=== PATIENT | female | born 1990 | race Caucasian/White ===

== ENCOUNTER → 2018-11-03 12:57 | Outpatient (CLI) | payer OTHER, SELFPAY ==
--- NOTE | 2018-11-03 13:05 | US_ITS ---
US transvaginal HISTORY: Pelvic pain ITS.REASON: ovarian cyst ORDERING PHYSICIAN: Dequan Villa MD PATIENT AGE: 28 years Comparison: None FINDINGS: The uterus is retroverted and measures 6 x 4 x 5 cm. There is an IUD in place. The endometrial stripe was not demonstrated secondary to the IUD. No uterine mass apparent. The left ovary is 3.8 x 1.7 cm and contains multiple small follicles. The right ovary is 3.7 x 3.7 cm also containing multiple small follicles. The volume of the right ovary is 14 cm and the volume of the left ovary is 12 cm. No cul-de-sac fluid evident. There is bilateral ovarian blood flow. IMPRESSION: Retroverted uterus with IUD in place. The ovaries have a polycystic appearance
== END ==
PROVIDERS: PCP Family Medicine; Visit Provider Nurse Practitioner Obstetrics & Gynecology
DX: N83.209 Unspecified ovarian cyst, unspecified side (principal)
CPT/HCPCS: 76830

== ENCOUNTER → 2019-07-31 13:58 | Outpatient (CLI) | payer OTHER, SELFPAY ==
[2019-07-31 14:32] LABS: Basophils % 0.2 % (0.1-2.0); Eosinophils # 0.1 K/mm3 (0.0-0.4); Eosinophils % 1.1 % (0.1-12.0); Hematocrit 41.5 % (37.0-47.0); Hemoglobin 13.9 g/dL (12.2-16.2); Lymphocytes # 3.1 K/mm3 (0.7-4.5); Lymphocytes % 28.2 % (10-50); Mean Corpuscular HGB Conc 33.4 g/dL (31.8-35.4); Mean Corpuscular Volume 89.9 fl (81-99); Mean Platelet Volume 8.2 fl (7.4-10.4); Monocytes # 0.6 K/mm3 (0.1-1.0); Monocytes % 5.4 % (1.7-9.3); Neutrophils # 7.2 K/mm3 (1.8-7.8); Neutrophils % 65.2 % (37.0-80.0); Platelet Count 275 K/mm3 (142-424); Red Blood Count 4.62 M/mm3 (4.20-5.40); Red Cell Distribution Width 13.3 % (11.5-17.5)
[2019-08-01 14:34] LABS: Free Thyroxine Index 2.9 ug/dL (5.93-13.13); T4 (Thyroxine) 7.7 ug/dl (5.53-11.0); Triiodothryronine (T3) Uptake 38 % (23.5-40.5)
[2019-08-01 14:48] LABS: Thyroid Stimulating Hormone 0.58 uIU/mL (0.465-4.68)
[2019-08-02 16:31] LABS: Vitamin B12 483 pg/mL (232-1245)
[2019-08-03 12:17] LABS: Vitamin D 25 Hydroxy 36.6 ng/mL (30.0-100.0)
== END ==
PROVIDERS: Visit Provider Nurse Practitioner Obstetrics & Gynecology
DX: R53.83 Other fatigue (principal)
CPT/HCPCS: 36415; 82607; 82652; 84436; 84443; 84479; 85025

== ENCOUNTER → 2019-12-27 15:58 | Outpatient (CLI) | payer OTHER, SELFPAY | PROVIDERS: Visit Provider Nurse Practitioner Obstetrics & Gynecology | DX: N39.0 Urinary tract infection, site not specified (principal) | CPT/HCPCS: 87086; 87088; 87186 ==

== ENCOUNTER → 2020-01-15 08:36 | Outpatient (CLI) | payer OTHER, SELFPAY ==
[2020-01-15 10:04] LABS: Coronavirus 19 IgG Antibody Negative (Negative); Coronavirus 19 IgM Antibody Negative (Negative)
== END ==
PROVIDERS: PCP Family Medicine; Visit Provider Internal Medicine Adolescent Medicine
DX: Z03.818 Encounter for observation for suspected exposure to other biological agents ruled out (principal)
CPT/HCPCS: 36415; 86328; U0003

== ENCOUNTER 2020-08-27 15:31 | Emergency (ER) | payer OTHER, SELFPAY ==
[2020-08-27 15:34] VITALS: RESP 16; TEMP 36.8; O2SAT 98; BMI 27.4
--- NOTE | 2020-08-27 15:51 | HMH.EDUTC ---
[facility] [place] Clinical Impression: Needle stick injury Disposition: Home, Self-Care Condition on Discharge: Good Instructions: How to Handle Body Fluid Exposure -- Healthcare Worker Additional Instructions: Keep area clean and dry and watch for signs of infection such as redness, red streaks and warmth Follow up as advised for repeat lab work due to body fluid exposure Return if needed Straight to ER if any life threatening symptoms Follow up with your Family Doctor if needed Referrals: Breezy Johnston MD [Primary Care Provider] - As needed Time of Disposition: 16:01 Medical Decision Making - Danny Inquiry Pt receiving controlled substance: No Danny was queried for this patient: No Vital Signs: 08/27/20 15:34 08/27/20 15:53 Temperature 98.3 F 98.3 F Temperature Source Oral Oral Pulse Rate 80 Respiratory Rate 16 16 Blood Pressure 0/0 L Blood Pressure Source Automatic Cuff Blood Pressure Position Sitting 02 Sat by Pulse Oximetry 98 Oxygen Delivery Method Room Air Room Air - Lab Data Lab Results 08/27/20 15:44: WBC 8.6, RBC 4.56, Hgb 13.8, Hct 42.3, MCV 92.7, MCH 30.2, MCHC 32.6, RDW 13.2, Plt Count 259, MPV 8.8, Neut % (Auto) 52.5, Lymph % (Auto) 39.7, Walton % (Auto) 5.6, Eos % (Auto) 1.9, Baso % (Auto) 0.3, Neut # (Auto) 4.5, Lymph # (Auto) 3.4, Walton # (Auto) 0.5, Eos # (Auto) 0.2, Baso # (Auto) 0.0 08/27/20 15:44: PT 10.4, INR 0.87 L, APTT 28.5 08/27/20 15:44: Total Bilirubin 0.6, Direct Bilirubin 0.1, Conjugated Bilirubin 0.0, Indirect Bilirubin 0.5, Unconjugated Bilirubin 0.4, AST 33, ALT 19, Alkaline Phosphatase 63, Total Protein 8.6 H, Albumin 5.4 H Result diagrams: 08/27/20 15:44 Orders (Tests/Meds): ORDERS Category Date Time Status HBsAg Screen Stat Lab 08/27/20 15:44 Received HIV Panel [id number] Stat Lab 03/30/21 15:44 Received Hepatitis B Surf Ab Quant Stat Lab 08/27/20 15:44 Received Hepatitis C Antibody Stat Lab 08/27/20 15:44 Received Medical Decision Narrative: Patient counseled to watch for signs of infection risks of communicable diseases associated with needle stick and repeat labs needed Patient advised to follow up with family doctor as advised [facility] [place] HPI - General Stated complaint: needle stick Time Seen by Provider: 08/27/20 15:51 Mode of Arrival: Ambulatory Source of Information: Patient Limitations: No Limitations Description of Symptoms (Recalled from Triage Doc. by RN): Pt was walking through the sim when she felt something sharp in her shoe, looked didnt see anything and stepped down again and felt something shapr again. Took her shoe off and noticed blood and there was a suture needle stuck HEENT Symptoms (Recalled from RN notes): No Resp Symptoms (Recalled from RN notes): No Skin Symptoms (Recalled from RN notes): Yes (stuck in foot with needle) MS Symptoms (Recalled from RN notes): No Functional Status (Recalled from RN notes): na - History of Present Illness Provider Complaint: Patient states that she was working and she was walking down the sim and she felt something sharp in the bottom of her foot between on the pad below her toes States that she took off her shoe and sock and didnt see anything so she but them back on and continued to walk down the sim when she felt something sharp poke her again in the bottom of the foot so she stopped took off her shoe and sock and seen blood on the bottome of her foot and noticed suture needle in the bottom of her shoe Unsure if the needle was used in case or not but she contacted [facility] infection control and was sent to the [facility] for lab work due to exposure - Related Data Previous Rx's Medication Instructions Recorded levothyroxine 25 mcg capsule 25 mcg PO DAILY #30 cap 08/02/19 ondansetron 4 mg disintegrating 4 mg PO Q6H #30 tab 06/28/20 tablet Allergies Allergy/AdvReac Type Severity Reaction Status Date / Time No Known Allergies Allergy Unverified 05/18/17 15:01 - Worker's Comp I
[2020-08-27 15:53] VITALS: BP 0/0; PULSE 80; RESP 16; TEMP 36.8; O2SAT 98
[2020-08-27 16:06] LABS: Basophils % 0.3 % (0.1-2.0); Eosinophils # 0.2 K/mm3 (0.0-0.4); Eosinophils % 1.9 % (0.1-12.0); Hematocrit 42.3 % (37.0-47.0); Hemoglobin 13.8 g/dL (12.2-16.2); Lymphocytes # 3.4 K/mm3 (0.7-4.5); Lymphocytes % 39.7 % (10-50); Mean Corpuscular HGB Conc 32.6 g/dL (31.8-35.4); Mean Corpuscular Hemoglobin 30.2 pg (27.0-31.2); Mean Corpuscular Volume 92.7 fl (81-99); Mean Platelet Volume 8.8 fl (7.4-10.4); Monocytes # 0.5 K/mm3 (0.1-1.0); Monocytes % 5.6 % (1.7-9.3); Neutrophils # 4.5 K/mm3 (1.8-7.8); Neutrophils % 52.5 % (37.0-80.0); Platelet Count 259 K/mm3 (142-424); Red Blood Count 4.56 M/mm3 (4.20-5.40); Red Cell Distribution Width 13.2 % (11.5-17.5); White Blood Count 8.6 K/mm3 (4.8-10.8)
[2020-08-27 16:10] LABS: Bilirubin,Unconjugated 0.4 mg/dL (0.0-1.1)
[2020-08-27 16:11] LABS: Alanine Aminotransferase 19 U/L (12-78); Albumin Level 5.4 g/dl (3.5-5.0); Alkaline Phosphatase 63 U/L (38-126); Aspartate Amino Transferase 33 U/L (14-36); Bilirubin,Direct 0.1 mg/dl (0.0-0.4); Bilirubin,Indirect 0.5 mg/dL (0.0-0.9); Bilirubin,Total 0.6 mg/dl (0.2-1.3); Total Protein,Serum 8.6 g/dl (6.3-8.2)
[2020-08-27 16:14] LABS: Activated Partial Thrombo Time 28.5 seconds (22.8-30.6); INR 0.87 (0.9-1.1); Prothrombin Time 10.4 seconds (10.1-12.5)
[2020-08-29 10:41] LABS: HIV Screen 4th Generation wRfx Non Reactive (Non Reactive)
[2020-08-30 03:34] LABS: Hepatitis B Surf Ab Quant 133.2 mIU/mL (Immunity>9.9); Hepatitis B Surface Antigen Negative (Negative); Hepatitis C Antibody <0.1 s/co ratio (0.0-0.9)
== END 2020-08-27 16:02 | disposition home or self-care (01) ==
PROVIDERS: Emergency Provider Nurse Practitioner; PCP Family Medicine
DX: S91.332A Puncture wound without foreign body, left foot, initial encounter (principal); W26.8XXA Contact with other sharp object(s), not elsewhere classified, initial encounter; W45.8XXA Other foreign body or object entering through skin, initial encounter; Y92.69 Other specified industrial and construction area as the place of occurrence of the external cause; Y99.0 Civilian activity done for income or pay
CPT/HCPCS: 80076; 85025; 85610; 85730; 86703; 86706; 87340; 87380; 99202; G0432; G0463

== ENCOUNTER → 2023-01-26 11:17 | Outpatient (CLI) | payer OTHER, SELFPAY ==
--- NOTE | 2023-01-26 11:20 | CT_ITS ---
FINAL REPORT TECHNIQUE: Axial CT images were obtained through the sinuses/facial bones. Coronal reformats were obtained. This study was performed with techniques to keep radiation doses as low as reasonably achievable (ALARA). Individualized dose reduction techniques using automated exposure control or adjustment of mA and/or kV according to the patient's size were employed. CLINICAL HISTORY: chronic sinusitis FINDINGS: The there is a lobular mucoperiosteal thickening in the left maxillary sinus consistent with chronic sinusitis. There are no air-fluid levels. The ostiomeatal units are patent. The nasal septum is not significantly deviated. No fractures are identified. IMPRESSION: Chronic left maxillary sinusitis. Reviewed, Interpreted and Dictated by Remy Jackson MD Transcribed by Bertin Bentley Authenticated and [facility]
== END ==
PROVIDERS: PCP Nurse Practitioner; Visit Provider Nurse Practitioner
DX: J32.0 Chronic maxillary sinusitis (principal)
CPT/HCPCS: 70486

== ENCOUNTER → 2023-03-23 13:22 | Outpatient (CLI) | payer OTHER, SELFPAY ==
[2023-03-23 09:07] LABS: Microscopic, Urine URINE MICROSCOPIC (MICROSCOPIC)
[2023-03-23 09:24] LABS: Appearance,Urine CLEAR (Clear); Bilirubin,Urine Negative (Negative); Blood, Urine Negative (Negative); Color,Urine YELLOW (Yellow); Glucose,Urine (UA) Negative (Negative); Ketones,Urine Negative (Negative); Leukocyte Esterase,Urine Negative (Negative); Nitrate,Urine Negative (Negative); Protein,Urine Negative (Negative); Specific Gravity, Urine 1.025 (1.005-1.030); Urobilinogen,Urine 0.2 EU/dl (0.2)
[2023-03-23 09:32] LABS: Basophils % 0.4 % (0.1-2.0); Eosinophils # 0.2 K/mm3 (0.0-0.4); Hematocrit 42.4 % (37.0-47.0); Hemoglobin 14.4 g/dL (12.2-16.2); Lymphocytes # 2.6 K/mm3 (0.7-4.5); Lymphocytes % 25.4 % (10-50); Mean Corpuscular HGB Conc 33.9 g/dL (31.8-35.4); Mean Corpuscular Hemoglobin 31.7 pg (27.0-31.2); Mean Corpuscular Volume 93.5 fl (81-99); Monocytes # 0.5 K/mm3 (0.1-1.0); Monocytes % 4.6 % (1.7-9.3); Neutrophils # 7.1 K/mm3 (1.8-7.8); Neutrophils % 67.7 % (37.0-80.0); Platelet Count 282 K/mm3 (142-424); Red Blood Count 4.54 M/mm3 (4.20-5.40); Red Cell Distribution Width 13.4 % (11.5-17.5); White Blood Count 10.4 K/mm3 (4.8-10.8)
[2023-03-23 10:01] LABS: Alanine Aminotransferase 34 U/L (12-78); Albumin Level 5.1 g/dl (3.5-5.0); Albumin/Globulin Ratio 1.7 (1.1-1.8); Alkaline Phosphatase 68 U/L (38-126); Anion Gap 18.2 mEq/L (5-15); Aspartate Amino Transferase 33 U/L (14-36); Bilirubin,Total 0.7 mg/dl (0.2-1.3); Blood Urea Nitrogen 12 mg/dl (7-17); Calcium 9.5 mg/dl (8.4-10.2); Carbon Dioxide 23 mmol/L (22.0-30.0); Chloride 103 mmol/L (98-107); Chol/HDL Ratio 5.5 (1-3.5); Cholesterol 208 mg/dl (140-200); Estimated Glomerular Filt Rate 96 ml/min (>60); GFR (African American) 116 ML/MIN (>60); Glucose 81 mg/dl (74-100); HDL Cholesterol 38 mg/dl (40-60); Potassium 4.2 mmoL/L (3.5-5.1); Sodium 140 mmol/L (136-145); Total Protein,Serum 8.1 g/dl (6.3-8.2); Triglycerides 169 mg/dl (30-150); VLDL Cholesterol 34 mg/dL (0-40)
[2023-03-23 10:12] LABS: Direct LDL Cholesterol 135.54 mg/dL (100-129)
[2023-03-23 10:21] LABS: 25-OH Vitamin D, Total 38.2 ng/mL (30-100)
[2023-03-23 10:51] LABS: Vitamin B12 508 pg/mL (239-931)
[2023-03-23 10:54] LABS: Free T4 (Free Thyroxine) 1.04 ng/dl (0.78-2.19)
[2023-03-23 10:57] LABS: Iron 155 ug/dL (37-170)
[2023-03-23 11:06] LABS: Total Iron Binding Capacity 397 ug/dL (265-497)
[2023-03-23 11:32] LABS: Ferritin 58.3 ng/ml (6.24-137)
[2023-03-23 11:58] LABS: Hemoglobin A1C 5.1 % (4.0-6.0)
[2023-03-24 23:57] LABS: Neisseria gonorrhoeae, NAA Negative (Negative)
== END ==
PROVIDERS: PCP Nurse Practitioner Family; Visit Provider Nurse Practitioner Family
DX: R53.83 Other fatigue (principal); R03.0 Elevated blood-pressure reading, without diagnosis of hypertension; E61.1 Iron deficiency; J34.2 Deviated nasal septum; E78.1 Pure hyperglyceridemia; J34.3 Hypertrophy of nasal turbinates; J34.89 Other specified disorders of nose and nasal sinuses; E66.9 Obesity, unspecified; Z68.31 Body mass index [BMI] 31.0-31.9, adult; Z13.1 Encounter for screening for diabetes mellitus; Z13.220 Encounter for screening for lipoid disorders; Z11.3 Encounter for screening for infections with a predominantly sexual mode of transmission
CPT/HCPCS: 80053; 80061; 81001; 82306; 82607; 82728; 83036; 83540; 83550; 84439; 84443; 85025; 87491; 87591

== ENCOUNTER → 2023-03-29 14:26 | Outpatient (CLI) | payer OTHER, SELFPAY ==
--- NOTE | 2023-03-29 14:29 | XR_ITS ---
FINAL REPORT CLINICAL HISTORY: Congestion, pre-op for sinus surgery. COMPARISON: None FINDINGS: A single portable view of the chest was obtained. The heart size and pulmonary vascularity are within normal limits. The mediastinum is within normal limits. No acute pulmonary abnormality is identified. The bony thorax is intact. IMPRESSION: No active cardiopulmonary disease. Reviewed, Interpreted and Dictated by Cristi Sanchez III, MD Transcribed by Celina Buckley Authenticated and [facility]
--- NOTE | 2023-03-29 14:44 | ECG_ITS ---
APPROVED REPORT Exam: Resting ECG HR:69 bpm ECG Measurements Heart Rate 69 AXES DE 169 P 50 QRSd 101 QRS 102 QT 388 T 51 QTc 407 Conclusion SINUS RHYTHM RIGHT AXIS DEVIATION [QRS AXIS > 100] LOW QRS VOLTAGE IN PRECORDIAL LEADS [QRS DEFLECTION < 1.0 mV IN CHEST LEADS] ABNORMAL ECG UNCONFIRMED REPORT Electronically signed by : Breezy Pablo MD 03/29/2023 20:17:03
== END ==
PROVIDERS: PCP Nurse Practitioner Family; Visit Provider Otolaryngology
DX: Z01.818 Encounter for other preprocedural examination (principal); J34.3 Hypertrophy of nasal turbinates; J34.2 Deviated nasal septum; J32.0 Chronic maxillary sinusitis
CPT/HCPCS: 71046; 93005

== ENCOUNTER → 2023-04-05 14:12 | Outpatient (CLI) | payer OTHER, SELFPAY ==
[2023-04-05 15:33] LABS: Urine Pregnancy, HCG Qual. Negative (Negative)
== END ==
PROVIDERS: PCP Nurse Practitioner Family; Visit Provider Otolaryngology
DX: Z01.812 Encounter for preprocedural laboratory examination (principal); J34.2 Deviated nasal septum; J34.3 Hypertrophy of nasal turbinates; J34.89 Other specified disorders of nose and nasal sinuses
CPT/HCPCS: 81025

== ENCOUNTER → 2023-04-06 14:27 | Outpatient (CLI) | payer OTHER, SELFPAY ==
--- NOTE | 2023-04-06 14:34 | CA_ITS ---
APPROVED REPORT EXAM: Comprehensive 2D, Doppler, and color-flow Echocardiogram X Ray Inspector: Lucía Cleveland, RCS, RVS Ht: 5 ft 3 in Wt: 180lbs BSA: 1.85 BP: 124/76 mmHg Indications: Hx- Right heart enlargement, Abn EKG- RAD, Preop clearance 2D Dimensions Aortic Root 2.18 cm F: 2.7 - 3.3 LA Volume 59.00 mL Left Atrium 2.97 cm F: 2.7 - 3.8 LA Volume Index 31.89 mL/m2 (M/F) 16-34 LVOT 1.72 cm (M/F) 1.5-2.5 M-Mode Dimensions RVDd 3.28 cm (0.9-2.6) LA Diam 3.26 cm (1.9-4.0) LVDd 3.15 cm (3.5-5.7) Ao Diam 2.69 cm (2.0-3.7) LVDs 1.91 cm (3.5-5.7) IVSd 0.90 cm (0.6-1.1) PWd 0.84 cm (0.6-1.1) EF (Teich) 71.30% EPSs 0.30 cm FS 39.40% EDV (Teich) 39.40 mL TAPSE 2.42 (<1.7) ESV (Teich) 11.30 mL LV Diastology E Decel Time 207.00 (160-240 msec) E/A Ratio 1.24 MED E' 7.80 (< 7 cm/sec) MED A' 16.60 cm/s E'/MED E' Ratio 10.04 (>14) LAT E' 12.10 (<10 cm/sec) LAT A' 13.70 cm/s E/LAT E' Ratio 6.47 (>14) Aortic Valve LVOT Max 140.00 (70-110 cm/s) LVOT VTI 27.17 cm AoV Peak Leroy. 180.00 (50-130 cm/s) AO Peak GR. 13.00 mmHg AO Mean GR. 6.40 (<5 mmHg) AO VTI 31.15 (18-25 cm) JEOVANY (VTI) 2.03 (2.5-4.5 cm2) Mitral Valve MV A Velocity 63.00 (40-130 cm/s) E/A Ratio 1.24 MV Decel. Time 207.00 (160-240 ms) Tricuspid Valve TR P. Velocity 194.00 cm/s RAP Estimate 10.00 mmHg RVSP 25.00 mmHg Left Ventricle The left ventricle is normal size. The left ventricular systolic function is normal. The left ventricular ejection fraction is within the normal range. There is normal left ventricular wall thickness. There is normal LV segmental wall motion. The left ventricular diastolic function is normal. LVEF is 60%. Right Ventricle The right ventricle is normal size. The right ventricular systolic function is normal. Atria The left atrium size is normal. The right atrium size is normal. There is no Doppler evidence of interatrial shunt. Aortic Valve The aortic valve opens well. There is no aortic valvular stenosis. No aortic regurgitation is present. Mitral Valve The mitral valve is normal in structure. No evidence of mitral valve stenosis. Trace mitral regurgitation. Tricuspid Valve The tricuspid valve leaflets are thin and pliable. Trace tricuspid regurgitation. There is insufficient TR jet to estimate RVSP. Pulmonic Valve The pulmonary valve is normal in structure. Trace pulmonic regurgitation. Great Vessels The aortic root is normal in size. The ascending aorta is normal in size. IVC is normal in size and collapses >50% with inspiration. Pericardium There is no pericardial effusion. Other Information Study Quality: Fair Conclusion Normal biventricular systolic function. No significant valvular stenosis or regurgitation. Electronically signed by : Breana Lei MD 04/06/2023 17:02:08
== END ==
PROVIDERS: PCP Nurse Practitioner Family; Visit Provider Physician Assistant
DX: R94.31 Abnormal electrocardiogram [ECG] [EKG] (principal); Z01.810 Encounter for preprocedural cardiovascular examination
CPT/HCPCS: 93306

== ENCOUNTER 2023-04-07 07:52 | Day surgery (SDC) | payer OTHER, SELFPAY ==
[2023-04-05 10:54] VITALS: BMI 31.6
[2023-04-07] VITALS (10 sets, daily range): BP systolic 129–152; BP diastolic 73–92; PULSE 76–101; RESP 16–18; TEMP 36.4–37.1; O2SAT 96–99
--- NOTE | 2023-04-07 08:21 | P.PNANES_ITS ---
[facility] Disclaimer: The information contained in this section may have been updated after the patient was seen, as this information can be updated by other users. Medical History Chronic maxillary sinusitis Deviated septum Family history of malignant neoplasm of endometrium Nasal turbinate hypertrophy Nasal valve stenosis Needle stick injury SLAP (superior glenoid labrum lesion) Surgical History H/O shoulder surgery Family History Other Cancer Coronary artery disease Diabetes Hyperlipidemia Hypertension Social History Smoking Status: Current every day smoker tobacco type: e-cigarettes years smoked: 2 alcohol intake: current substance use type: denies use current occupational status: employed Travel in the last 8 weeks: None [facility] Anesthesia Checklist Patient Identification Patient Identification: Verbal (Name & ) Structural Data Admitted From: Home Planned Operative Procedure/s: nasal septo Consent for Planned Operative Procedure(s) Verified: Yes NPO Status Verified Time NPO: 00:00 Airway Assessment Mallampati Score:: Class I C-Spine Mobility Assessed: Yes TMJ Mobility Assessed: Yes Dentition: Good Dentition Neurological Assessment Level of Consciousness: Awake, Alert and Appropriate Anesthesia Plan Anesthesia Risk discussed: Yes Anesthesia Plan: Verified ASA Class: II Anesthesia Type: General
--- NOTE | 2023-04-07 11:57 | P.PNANES_ITS ---
[facility] Anesthesia Record Part I Anesthesia Record I Intake, IV Amount: 1,500 Hydration: Adequate Estimated blood loss (mL): 10 Urine output (mL): 0 Blood Products used (#): none Blood Pressure: 143/73 SaO2: 96 Pulse Rate: 101 Airway Patency: Patent Respiratory Rate: 16 Temperature: 97.8 F Patient is:: Drowsy and Stable Stable to PACU at:: 11:55
--- NOTE | 2023-04-07 11:57 | EXP.OP.NOTE ---
Date of procedure: 04/07/23 Pre-op Diagnosis:: Deviated septum, turbinate hypertrophy, bilateral nasal valve stenosis Post-op Diagnosis:: Deviated septum, turbinate hypertrophy, bilateral nasal valve stenosis Procedure performed:: Septoplasty, reduction of inferior turbinates bilaterally, repair of nasal valve stenosis with nasal tip cartilage clinical research scientist grafts bilaterally Surgeon:: Jeff Lynch MD NOCTURNIST PHYSICIAN:: Ilia Sanz Anesthesia: GETA Estimated blood loss (mL): 50 Operative findings:: Deviated septum to the right, turbinate hypertrophy bilaterally worse on the left, nasal valve stenosis bilaterally Operative note:: The patient was brought to the operating room and after adequate general anesthesia the nose was prepped and draped in the usual sterile fashion and 1% lidocaine with epinephrine used to locally infiltrate the columella, nasal tip, nasal dorsum, and medial and lateral crura. 1% lidocaine with epinephrine was used to locally infiltrate the septum and inferior turbinates as well. Next, a columellar incision was made and extended along the inferior border of the lower lateral cartilage bilaterally and then skin and soft tissue elevated off the columella, nasal tip, nasal dorsum, and medial and lateral crura. The medial crura were then divided at midline and dissection performed down to the caudal end of the cartilaginous septum which was deflected into the right nasal vestibule. Mucoperichondrial flaps were elevated off the bony and cartilaginous septum bilaterally and the cartilaginous septum was mobilized shortened by 0.5 mm and brought back over the midline maxillary crest. A large bony spur posteriorly on the right side was also resected. A portion of the cartilaginous septum was harvested for use as nasal tip clinical research scientist grafts. The mucoperichondrial flaps were then returned to anatomic position and held in place with a 4-0 plain gut horizontal mattress suture and then attention drawn to the nasal dorsum. The previously harvested cartilaginous septum was fashioned into nasal tip clinical research scientist grafts x2. The clinical research scientist grafts were then interposed between the medial border of the upper lateral cartilage and the dorsal edge of the cartilaginous septum in a submucosal pocket. The clinical research scientist grafts were placed bilaterally and secured in place using 6-0 Prolene horizontal mattress sutures. The skin and soft tissue were then redraped over the nasal skeleton and internal nasal incisions closed with 5-0 chromic and, columellar incision closed with 6-0 nylon. Attention was then drawn to the inferior turbinates submucosal resection of the redundant soft tissue of the inferior turbinates was performed with a microdebrider and turbinate blade through an anterior stab incision. This was done bilaterally and then the bone of the inferior turbinate lateralized with an elevator. Garvin splints were then placed on the septum and secured to the columella using 3-0 nylon and then Steri-Strips were placed externally to help the skin redraped over the nasal skeleton and the procedure concluded. All counts correct and blood loss was less than 50 mL and patient was sent to recovery in stable condition. Condition: stable Disposition: PACU Complications:: No complications
--- NOTE | 2023-04-07 12:07 | EXP.ANES.CKL ---
[facility] Disclaimer: The information contained in this section may have been updated after the patient was seen, as this information can be updated by other users. Medical History Chronic maxillary sinusitis Deviated septum Family history of malignant neoplasm of endometrium patient's mother Nasal turbinate hypertrophy Nasal valve stenosis Needle stick injury SLAP (superior glenoid labrum lesion) Surgical History H/O shoulder surgery right shoulder/slap 2007 Status post nasal septoplasty Family History Other Cancer Coronary artery disease Diabetes Hyperlipidemia Hypertension Social History Smoking Status: Current every day smoker tobacco type: e-cigarettes years smoked: 2 alcohol intake: current substance use type: denies use current occupational status: employed Travel in the last 8 weeks: None [facility] Anesthesia Checklist Patient Identification Patient Identification: Verbal (Name & ) Structural Data Admitted From: Home Planned Operative Procedure/s: nasal NPO Status Verified Time NPO: 00:00 Additional verifications Anesthesia Reactions: No Hx Blood Transfusions: No Airway Assessment Mallampati Score:: Class I C-Spine Mobility Assessed: Yes TMJ Mobility Assessed: Yes Dentition: Good Dentition Neurological Assessment Level of Consciousness: Awake, Alert and Appropriate Anesthesia Plan Anesthesia Risk discussed: Yes Anesthesia Plan: Verified ASA Class: II Anesthesia Type: General
--- NOTE | 2023-04-07 12:42 | SUR.PHASEI ---
1225: Patient stated having a pain level of 3 on a 0-10 pain scale, stated it was a bad burning sensation in nose. Contacted anesthesia. Per RFeeback, MOLDING MACHINE OPERATOR HELPER could give Tylenol 1000mg IV. 1228: Administered Tylenol 1000mg IV. 1238: Patient stated that pain medication was working and pain level had decreased.
--- NOTE | 2023-04-07 13:50 | SUR.PHASEII ---
1330 clinic pharmacy called again regarding medicine for meds to beds and co pay. Gabriella stated they were still running it through insurance. 1350 spoke with gabriella again regarding eta on patients medications, whom stated the pharmacist was giving a shot right now and would finish pt medication after.
== END 2023-04-07 14:15 | disposition home or self-care (01) ==
PROVIDERS: PCP Nurse Practitioner Family; Visit Provider Otolaryngology
PROC: (CPT 30520; principal; 2023-04-07 09:15)
DX: J34.2 Deviated nasal septum (principal); J34.3 Hypertrophy of nasal turbinates; J34.89 Other specified disorders of nose and nasal sinuses
CPT/HCPCS: 30520; 30140; 30465; 20912; J0131; J2405

== ENCOUNTER 2024-09-04 15:15 | Outpatient (CLI) | payer OTHER, SELFPAY ==
[2024-09-04 17:57] LABS: 25-OH Vitamin D, Total 32.8 ng/mL (30-100)
[2024-09-04 18:29] LABS: Vitamin B12 247 pg/mL (239-931)
[2024-09-04 18:34] LABS: Iron 112 ug/dL (37-170)
[2024-09-04 19:07] LABS: Total Iron Binding Capacity 369 ug/dL (265-497)
[2024-09-04 19:34] LABS: Ferritin 34.7 ng/ml (6.24-137)
--- OUTSIDE RECORDS SUMMARY | 2024-09-07 20:42 | XMS_ITS | Data Portability ---
Author Organization [facility] Address [address] [place] [address] Care Team Providers Care Cork Tipper Name Role Phone KAMERON GONZALES Primary Care Provider [phone] Assessment No assessment recorded. Plan of Treatment Reminders Order Date Submit Date Provider Last Modified By Organization Details Last Modified Time Details Appointments None record ed. Lab None record ed. Referral None record ed. Procedures None record ed. Surgeries None record ed. Imaging None record ed. Medication Orders None record ed. Patient TargetsNo targets recorded. Patient Instructions Encounter Date Encounter Id Patient Instructions Last Modified By Organization Details Last Modified Time 04/15/2023 [id number] 1. Nasal Endoscopy W/debridement performed in office today. Full risks, complications, and benefits of non-operative intervention have been thoroughly discussed. Understanding was expressed, informed consent given, and we will proceed with the discussed operative treatment plan. There were no questions for me at the end of the office visit. 2. Steri strip and suture removal performed today in office. 3. Continue saline nasal spray 4-6 times per day 4. F/u in 2-4 weeks *Kayley * [email or web address] Not available 04/15/2023 13:13:47 She is doing wel l after septoplasty, turbinate reduction, and repair of nasal valve stenosis with combat systems engineer grafts. Her nasal airway obstructive symptoms are improved already. I removed her sutures and Steri-Strips and did nasal endoscopic bilateral debridement. Wound care instructions were reviewed and I will see her once more in 4 weeks. [email or web address] Not available 04/15/2023 13:16:14 Reason for Referral None Reported. Problems No Known Problems Procedures Surgical History Date Name Laterality Status Provider Name and Address Organization Details Recorded Time 04/15/20 23 Endoscopy Nasal; Biospy, Polypectomy or Debridement completed Kellie Mcdowell [facility] 04/15/2023 13:12:05 Imaging Results None recorded. Procedure Notes None recorded. Medical Equipment None Reported. Allergies No known drug allergies Medications Name Sig Start Date Stop Date Status Note LastModified by Organization Details LastModified Time ABELARDO (28) 3 mg-0.02 mg tablet active Medication Description: drospirenone -ethinyl estradiol; Route:oral; refills:0 Not Available Not Available Not Available Vitals Date Recorded Body height Body mass index (BMI) Body weight Body temperature Systolic blood pressure Diastolic blood pressure Provider Name and Address Organization Details Last Updated DateTime 3 160.02 cm 32 kg/m2 21164.7 3 g 97.8 [degF] 145 mm[Hg] 95 mm[Hg] [place] [facility] 12:58:01 Social History None recorded. Functional Status None recorded. Mental Status None recorded. Family History Nothing Reported. Medical History No medical history recorded. Gynecological HistoryNo gynecological history recorded. 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 Notes Date Note Type Note Provider Name and Address Organization Details Recorded Time 04/15/2023 text/html Winnie presents in office today to follow up on steri strip removal from operation performed on 04/07/23- septoplasty, SMR of turbinates, and combat systems engineer graft. The pt is wanting to return to work Wednesday. The pt does not have any post op concerns. BOB ROCK MD [address] [place], [address], [facility] 04/15/2023 13:16:18 OBGyn Episode No OBEpisode recorded.
== END 2024-09-04 23:59 | disposition home or self-care (01) ==
LOC: LAB 15:16
PROVIDERS: PCP Nurse Practitioner Family; Visit Provider Nurse Practitioner Family
DX: R53.83 Other fatigue (principal)
CPT/HCPCS: 36415; 82306; 82607; 82728; 83540; 83550